=== PATIENT | female | born 1990 | race Caucasian/White ===

== ENCOUNTER 2021-10-03 19:34 | Emergency (ER) | payer OTHER, SELFPAY ==
--- NOTE | 2021-10-03 19:31 | ECG_ITS ---
APPROVED REPORT Exam: Resting ECG HR:95 bpm ECG Measurements Heart Rate 95 AXES UT 156 P 81 QRSd 86 QRS 85 QT 364 T 73 QTc 457 Conclusion Normal sinus rhythm with sinus arrhythmia Biatrial enlargement Abnormal ECG Electronically signed by : Shiva Lemus MD 10/05/2021 14:29:08
[2021-10-03 19:34] VITALS: BP 130/80; PULSE 92; RESP 18; TEMP 37; O2SAT 100; BMI 21.4
[2021-10-03 19:37] VITALS: BMI 25.0
--- NOTE | 2021-10-03 19:43 | XR_ITS ---
PROCEDURE INFORMATION: Exam: XR Chest Exam date and time: 10/03/2021 7:43 PM Age: 31 years old Clinical indication: Chest wall pain; Additional info: Burning chest pain, covid 09/19 TECHNIQUE: Imaging protocol: XR of the chest. Views: 2 views. COMPARISON: No relevant prior studies available. FINDINGS: Airway: Patent Lungs: Unremarkable. No consolidation. Pleural spaces: Unremarkable. No pleural effusion. No pneumothorax. Heart/Mediastinum: Unremarkable. No cardiomegaly. Bones/joints: No acute skeletal abnormality or aggressive osseous lesion. IMPRESSION: No acute findings.
[2021-10-03 19:52] LABS: Basophils # 0.1 K/mm3 (0-0.2); Basophils % 1.2 % (0.1-2.0); Eosinophils # 0.1 K/mm3 (0.0-0.4); Eosinophils % 1.2 % (0.1-12.0); Hematocrit 38.4 % (37.0-47.0); Hemoglobin 13.6 g/dL (12.2-16.2); Lymphocytes # 2.9 K/mm3 (0.7-4.5); Lymphocytes % 27.1 % (10-50); Mean Corpuscular HGB Conc 35.4 g/dL (31.8-35.4); Mean Corpuscular Hemoglobin 32.1 pg (27.0-31.2); Mean Corpuscular Volume 90.5 fl (81-99); Mean Platelet Volume 8.7 fl (7.4-10.4); Monocytes # 0.4 K/mm3 (0.1-1.0); Monocytes % 3.8 % (1.7-9.3); Neutrophils # 7.2 K/mm3 (1.8-7.8); Neutrophils % 66.7 % (37.0-80.0); Platelet Count 279 K/mm3 (142-424); Red Blood Count 4.24 M/mm3 (4.20-5.40); Red Cell Distribution Width 12.5 % (11.5-17.5); White Blood Count 10.8 K/mm3 (4.8-10.8)
[2021-10-03 19:58] LABS: Alanine Aminotransferase 14 U/L (12-78); Albumin Level 4.2 g/dl (3.5-5.0); Alkaline Phosphatase 81 U/L (38-126); Anion Gap 10.3 mEq/L (5-15); Aspartate Amino Transferase 22 U/L (14-36); Bilirubin,Direct 0.3 mg/dl (0.0-0.4); Bilirubin,Indirect 0.1 mg/dL (0.0-0.9); Bilirubin,Total 0.4 mg/dl (0.2-1.3); Bilirubin,Unconjugated 0.1 mg/dL (0.0-1.1); Blood Urea Nitrogen 15 mg/dl (7-17); Calcium 9.4 mg/dl (8.4-10.2); Carbon Dioxide 27 mmol/L (22.0-30.0); Chloride 102 mmol/L (98-107); Creatinine Clearance Estimated 109 mL/min (50-200); Estimated Glomerular Filt Rate 84 ml/min (>60); GFR (African American) 101 ML/MIN (>60); Glucose 94 mg/dl (74-100); Potassium 3.3 mmoL/L (3.5-5.1); Sodium 136 mmol/L (136-145); Total Protein,Serum 6.8 g/dl (6.3-8.2)
--- NOTE | 2021-10-03 20:00 | CT_ITS ---
PROCEDURE INFORMATION: Exam: CT Abdomen And Pelvis With Contrast Exam date and time: 10/03/2021 8:00 PM Age: 31 years old Clinical indication: Nausea and vomiting; Additional info: N/v/d, ag abd pain TECHNIQUE: Imaging protocol: Computed tomography of the abdomen and pelvis with contrast. Radiation optimization: All CT scans at this facility use at least one of these dose optimization techniques: automated exposure control; mA and/or kV adjustment per patient size (includes targeted exams where dose is matched to clinical indication); or iterative reconstruction. Contrast material: ISOVUE; Contrast volume: 75 ml; Contrast route: IV; COMPARISON: OBTV US OB transvaginal 04/06/2019 12:10 PM FINDINGS: Lungs: Visualized lung bases are clear. Liver: Normal. No mass. Gallbladder and bile ducts: The gallbladder is contracted. There is no evidence of biliary ductal dilation. Pancreas: Normal. No ductal dilation. Spleen: Normal. No splenomegaly. Adrenal glands: Normal. No mass. Kidneys and ureters: Normal. No hydronephrosis. Stomach and bowel: No bowel obstruction or significant bowel wall thickening. There is excessive colonic stool content. Appendix: A normal appendix is identified. Intraperitoneal space: No free fluid, fluid collections, or pneumoperitoneum. Retroperitoneal space: No acute abnormalities in the retroperitoneal space. Vasculature: Unremarkable. No abdominal aortic aneurysm. Lymph nodes: No retroperitoneal, pelvic, or mesenteric adenopathy. Urinary bladder: Unremarkable as visualized. Reproductive: Unremarkable as visualized. Bones/joints: No acute skeletal abnormality or aggressive osseous lesion. Soft tissues: No acute body wall soft tissue findings. IMPRESSION: No acute abdominopelvic pathology.
[2021-10-03 20:12] LABS: C-Reactive Protein < 0.3 mg/L (0-4); Troponin I < 0.01 ng/ml (0.00-0.034)
[2021-10-03 20:13] VITALS: BP 113/53; PULSE 75; RESP 18; O2SAT 98
[2021-10-03 20:18] LABS: Erythrocyte Sedimentation Rate 10 mm/hr (0-20); Procalcitonin < 0.030 ng/mL (0.0-2.0)
[2021-10-03 20:29] LABS: HCG Qualitative, Serum Negative (Negative)
[2021-10-03 20:30] VITALS: BP 109/65; PULSE 77; RESP 16; O2SAT 98
[2021-10-03 20:37] LABS: Microscopic, Urine URINE MICROSCOPIC (MICROSCOPIC)
[2021-10-03 20:41] LABS: Appearance,Urine CLEAR (Clear); Bilirubin,Urine Negative (Negative); Blood, Urine TRACE-L (Negative); Color,Urine YELLOW (Yellow); Glucose,Urine (UA) Negative (Negative); Ketones,Urine Negative (Negative); Leukocyte Esterase,Urine Negative (Negative); Nitrate,Urine Negative (Negative); Protein,Urine Negative (Negative); Specific Gravity, Urine 1.025 (1.005-1.030)
[2021-10-03 21:00] VITALS: BP 123/63; PULSE 82; RESP 14; O2SAT 98
[2021-10-03 21:06] LABS: Bacteria,Urine 1+ /lpf
--- NOTE | 2021-10-03 21:53 | HMH.EDNVD ---
ED Disposition Clinical Impression: Chest pain Qualifiers: Chest pain type: unspecified Qualified Code(s): R07.9 - Chest pain, unspecified Disposition: Home, Self-Care Condition on Discharge: Good Instructions: DI for Nausea -- Adult Additional Instructions: fluids and see pcp for follow up Referrals: Ewelina Garcia [Primary Care Provider] - - Critical Care Critical Care Time: No Attestation: On 10/03/21, the high probability of a clinically significant, sudden or life threatening deterioration of the following system(s) required my full and direct attention, intervention and personal management. The time I documented below is in addition to time spent performing reported procedures but includes the following listed in this critical care notation. Medical Decision Making - Medical Records Medical records reviewed: Yes: I reviewed the patient's medical records. - Mundo Inquiry Pt receiving controlled substance: No Vital Signs: 10/03/21 19:34 10/03/21 20:13 10/03/21 20:30 Temperature 98.6 F Temperature Source Oral Pulse Rate 75 77 Pulse Rate [Right] 92 H Respiratory Rate 18 18 16 Blood Pressure 113/53 L 109/65 L Blood Pressure [Right Arm] 130/80 Blood Pressure Mean 78 72 Blood Pressure Mean [Right Arm] 96 02 Sat by Pulse Oximetry 100 98 98 Oxygen Delivery Method Room Air Room Air Room Air 10/03/21 21:00 Temperature Temperature Source Pulse Rate 82 Pulse Rate [Right] Respiratory Rate 14 Blood Pressure 123/63 Blood Pressure [Right Arm] Blood Pressure Mean 82 Blood Pressure Mean [Right Arm] 02 Sat by Pulse Oximetry 98 Oxygen Delivery Method Room Air - Lab Data Lab results reviewed: Yes: I reviewed the patient's lab results. Lab Results 10/03/21 19:36: WBC 10.8, RBC 4.24, Hgb 13.6, Hct 38.4, MCV 90.5, MCH 32.1 H, MCHC 35.4, RDW 12.5, Plt Count 279, MPV 8.7, Neut % (Auto) 66.7, Lymph % (Auto) 27.1, [place] % (Auto) 3.8, Eos % (Auto) 1.2, Baso % (Auto) 1.2, Neut # (Auto) 7.2, Lymph # (Auto) 2.9, [place] # (Auto) 0.4, Eos # (Auto) 0.1, Baso # (Auto) 0.1 10/03/21 19:36: Sodium 136, Potassium 3.3 L, Chloride 102, Carbon Dioxide 27, Anion Gap 10.3, BUN 15, Creatinine 0.80, Estimated Creat Clear 109, Estimated GFR 84, Est GFR ( Amer) 101, Glucose 94, Calcium 9.4, Total Bilirubin 0.4, Direct Bilirubin 0.3, Conjugated Bilirubin 0.0, Indirect Bilirubin 0.1, Unconjugated Bilirubin 0.1, AST 22, ALT 14, Alkaline Phosphatase 81, Troponin I < 0.01, C-Reactive Protein < 0.3, Total Protein 6.8, Albumin 4.2 10/03/21 19:36: ESR 10 10/03/21 19:36: Procalcitonin < 0.030 10/03/21 19:36: Serum HCG, Qual Negative 10/03/21 20:16: Urine Color Yellow, Urine Appearance Clear, Urine pH 6.0, Ur Specific [place] 1.025, Urine Protein Negative, Urine Glucose (UA) Negative, Urine Ketones Negative, Urine Blood Trace-l, Urine Nitrate Negative, Urine Bilirubin Negative, Urine Urobilinogen 1.0, Ur Leukocyte Esterase Negative, Urine RBC 3-5, Urine WBC 5-10, Ur Squamous Epith Cells 3-5, Urine Bacteria 1+ Result diagrams: 10/03/21 19:36 10/03/21 19:36 Orders (Tests/Meds): ED MEDICATIONS Generic Name Dose Route Start Last Admin Trade Name Freq PRN Reason Stop Dose Admin Sodium Chloride 1,000 mls @ 999 mls/hr 10/03/21 19:45 10/03/21 20:00 Sod Chlor 0.9% 1000ml Bag IV 10/03/21 20:45 999 mls/hr .Q1H1M KARINA Administration Discontinued Medications Generic Name Dose Route Start Last Admin Trade Name Freq PRN Reason Stop Dose Admin Iopamidol 75 ml 10/03/21 20:50 10/03/21 20:50 Iopamidol-370 (76%);100ml Bottle IV 10/03/21 20:51 75 ml ONCE ONE Administration Ketorolac Tromethamine 30 mg 10/03/21 19:43 10/03/21 20:41 Ketorolac 30mg/Ml Vial IV 10/03/21 19:44 30 mg ONCE ONE Administration Metoclopramide HCl 10 mg 10/03/21 19:43 10/03/21 20:41 Metoclopramide Hcl 10mg/2ml Vial IVP 10/03/21 19:44 10 mg ONCE ONE Administration Ondansetron HCl 4 mg 10/03/21 19:43 10/03/21
[2021-10-03 23:25] VITALS: BP 100/55; PULSE 78; RESP 19; TEMP 37.1; O2SAT 98
== END 2021-10-03 23:45 | disposition home or self-care (01) ==
PROVIDERS: Emergency Provider Emergency Medicine; PCP Nurse Practitioner Family
DX: R07.9 Chest pain, unspecified (principal); R11.2 Nausea with vomiting, unspecified
CPT/HCPCS: 71046; 74177; 80048; 80076; 81001; 84145; 84484; 84703; 85025; 85651; 86140; 93005; 96365; 96375; 99283; J2405; Q9967

== ENCOUNTER 2022-04-29 10:42 | Emergency (ER) | payer OTHER, SELFPAY ==
[2022-04-29 11:08] VITALS: BP 120/73; PULSE 87; RESP 16; TEMP 36.9; O2SAT 100; BMI 21.4
--- NOTE | 2022-04-29 11:32 | PC.NURSE ---
Pt ambulating to bathroom at this time to provide urine sample.
[2022-04-29 11:38] LABS: Basophils # 0.1 K/mm3 (0-0.2); Eosinophils # 0.1 K/mm3 (0.0-0.4); Eosinophils % 1.6 % (0.1-12.0); Hematocrit 38.4 % (37.0-47.0); Hemoglobin 12.9 g/dL (12.2-16.2); Lymphocytes # 2.2 K/mm3 (0.7-4.5); Lymphocytes % 31.4 % (10-50); Mean Corpuscular HGB Conc 33.5 g/dL (31.8-35.4); Mean Corpuscular Volume 92.5 fl (81-99); Mean Platelet Volume 8.5 fl (7.4-10.4); Monocytes # 0.3 K/mm3 (0.1-1.0); Monocytes % 4.4 % (1.7-9.3); Neutrophils # 4.3 K/mm3 (1.8-7.8); Neutrophils % 61.5 % (37.0-80.0); Platelet Count 241 K/mm3 (142-424); Red Blood Count 4.15 M/mm3 (4.20-5.40); Red Cell Distribution Width 12.7 % (11.5-17.5); White Blood Count 6.9 K/mm3 (4.8-10.8)
--- NOTE | 2022-04-29 11:40 | PC.NURSE ---
Urine sample sent to lab. Pt hooked back up to monitor and IVF's. Provided pt with warm blanket.
[2022-04-29 11:43] LABS: Microscopic, Urine URINE MICROSCOPIC (MICROSCOPIC)
[2022-04-29 11:44] LABS: Chloride 107 mmol/L (98-107)
[2022-04-29 11:45] LABS: Sodium 137 mmol/L (136-145)
[2022-04-29 11:47] LABS: Alanine Aminotransferase 23 U/L (12-78); Amylase 64 U/L (30-110); Aspartate Amino Transferase 33 U/L (14-36); Blood Urea Nitrogen 10 mg/dl (7-17); Creatinine Clearance Estimated 120 mL/min (50-200); Estimated Glomerular Filt Rate 116 ml/min (>60); GFR (African American) 140 ML/MIN (>60)
[2022-04-29 11:48] LABS: Albumin Level 3.9 g/dl (3.5-5.0); Albumin/Globulin Ratio 1.5 (1.1-1.8); Alkaline Phosphatase 86 U/L (38-126); Calcium 9.1 mg/dl (8.4-10.2); Carbon Dioxide 26 mmol/L (22.0-30.0); Globulin 2.6 g/dL (1.3-3.2); Glucose 103 mg/dl (74-100); Lipase 47 U/L (23-300); Total Protein,Serum 6.5 g/dl (6.3-8.2)
[2022-04-29 11:51] LABS: Bilirubin,Total < 0.1 mg/dl (0.2-1.3)
[2022-04-29 11:58] LABS: HCG Qualitative, Serum Negative (Negative)
[2022-04-29 12:00] VITALS: BP 111/70; PULSE 71; RESP 18; O2SAT 100
[2022-04-29 12:01] LABS: Appearance,Urine CLEAR (Clear); Bilirubin,Urine Negative (Negative); Blood, Urine TRACE-I (Negative); Color,Urine YELLOW (Yellow); Glucose,Urine (UA) Negative (Negative); Ketones,Urine Negative (Negative); Leukocyte Esterase,Urine Negative (Negative); Nitrate,Urine Negative (Negative); PH,Urine 6.5 (5.0-8.5); Protein,Urine Negative (Negative); Specific Gravity, Urine <= 1.005 (1.005-1.030); Urobilinogen,Urine 0.2 EU/dl (0.2)
[2022-04-29 12:04] LABS: RBC,Urine Occasional #/hpf (0-3)
--- NOTE | 2022-04-29 12:10 | PC.NURSE ---
rounded on pt, pt resting in bed, pt states no needs at this time. Will continue to monitor
--- NOTE | 2022-04-29 12:25 | HMH.EDGENADL ---
ED Disposition Clinical Impression: Epigastric pain Disposition: Home, Self-Care Condition on Discharge: Good Instructions: DI for Acute Abdominal Pain Additional Instructions: Additional instructions for ABDOMINAL PAIN: See your physician as soon as possible for further evaluation. Return immediately if worsening abdominal pain, vomiting, shortness of breath, fever, vomiting of blood or abdominal distention. Continue taking omeprazole as prescribed. Zofran as needed for nausea. Follow-up with primary care provider for further evaluation and care. Prescriptions: Ondansetron [Zofran 4mg ODT] 4 mg PO TIDP PRN #10 tab PRN Reason: Nausea And Vomiting Transmission Status: Received by [facility] Referrals: Ewelina Garcia [Primary Care Provider] - Forms: Work/School Release - Critical Care Critical Care Time: No Attestation: On 04/29/22, the high probability of a clinically significant, sudden or life threatening deterioration of the following system(s) required my full and direct attention, intervention and personal management. The time I documented below is in addition to time spent performing reported procedures but includes the following listed in this critical care notation. Medical Decision Making - Medical Records Medical records reviewed: Yes: I reviewed the patient's medical records. MR Comment: Reviewed emergency department note and CT abdomen/pelvis report from 10/03/2021. Patient had COVID at that time and had right upper quadrant pain intermittently. CT scan unremarkable. - Mundo Inquiry Pt receiving controlled substance: No Vital Signs: 04/29/22 11:08 04/29/22 12:00 04/29/22 12:30 Temperature 98.4 F Temperature Source Oral Pulse Rate 71 91 H Pulse Rate [Right Radial] 87 Respiratory Rate 16 18 18 Blood Pressure 111/70 117/82 Blood Pressure [Right Arm] 120/73 Blood Pressure Mean 80 93 Blood Pressure Mean [Right Arm] 88 Blood Pressure Source [Right Arm] Automatic Cuff Blood Pressure Position [Right Arm] Sitting 02 Sat by Pulse Oximetry 100 100 99 Oxygen Delivery Method Room Air Room Air - Lab Data Lab Results 04/29/22 11:25: WBC 6.9, RBC 4.15 L, Hgb 12.9, Hct 38.4, MCV 92.5, MCH 31.0, MCHC 33.5, RDW 12.7, Plt Count 241, MPV 8.5, Neut % (Auto) 61.5, Lymph % (Auto) 31.4, [place] % (Auto) 4.4, Eos % (Auto) 1.6, Baso % (Auto) 1.0, Neut # (Auto) 4.3, Lymph # (Auto) 2.2, Bell # (Auto) 0.3, Eos # (Auto) 0.1, Baso # (Auto) 0.1 04/29/22 11:25: Sodium 137, Potassium 4.0, Chloride 107, Carbon Dioxide 26, Anion Gap 8.0, BUN 10, Creatinine 0.60, Estimated Creat Clear 120, Estimated GFR 116, Est GFR ( Amer) 140, Glucose 103 H, Calcium 9.1, Total Bilirubin < 0.1 L, AST 33, ALT 23, Alkaline Phosphatase 86, Total Protein 6.5, Albumin 3.9, Globulin 2.6, Albumin/Globulin Ratio 1.5, Amylase 64, Lipase 47 04/29/22 11:25: Serum HCG, Qual Negative 04/29/22 11:35: Urine Color Yellow, Urine Appearance Clear, Urine pH 6.5, Ur Specific [place] <= 1.005, Urine Protein Negative, Urine Glucose (UA) Negative, Urine Ketones Negative, Urine Blood Trace-i, Urine Nitrate Negative, Urine Bilirubin Negative, Urine Urobilinogen 0.2, Ur Leukocyte Esterase Negative, Urine RBC Occasional, Urine WBC None, Ur Squamous Epith Cells 3-5, Urine Bacteria None Result diagrams: 04/29/22 11:25 04/29/22 11:25 Orders (Tests/Meds): ED MEDICATIONS Generic Name Dose Route Start Last Admin Trade Name Freq PRN Reason Stop Dose Admin Sodium Chloride 10 ml 04/29/22 11:12 Sodium Chloride 0.9% 10ml Flush Syringe IV 05/29/22 11:11 NEEDED PRN Maintain IV Site Sodium Chloride 8 ml 04/29/22 12:32 04/29/22 12:36 Sodium Chloride 0.9% 10ml Vial IV 05/29/22 12:31 8 ml NEEDED PRN Administration dilute pepcid Discontinued Medications Generic Name Dose Route Start Last Admin Trade Name Freq PRN Reason Stop Dose Admin Belladonna Alkaloids 60 ml 04/29/22 12:33 04/29/22 12:36
[2022-04-29 12:30] VITALS: BP 117/82; PULSE 91; RESP 18; O2SAT 99
[2022-04-29 13:35] VITALS: BP 102/63; PULSE 74; RESP 16; TEMP 36.9; O2SAT 100
== END 2022-04-29 13:37 | disposition home or self-care (01) ==
PROVIDERS: Emergency Provider Emergency Medicine; PCP Nurse Practitioner Family
DX: R10.13 Epigastric pain (principal); R11.0 Nausea; R19.7 Diarrhea, unspecified
CPT/HCPCS: 80053; 81001; 82150; 83690; 84703; 85025; 96361; 96374; 96375; 99284; J2405

== ENCOUNTER → 2022-11-01 09:47 | Outpatient (CLI) | payer OTHER, SELFPAY ==
--- NOTE | 2022-11-01 09:56 | NM_ITS ---
FINAL REPORT CLINICAL HISTORY: UPPER ABD. PAIN 10:10am 8.56 mci tc choletec 1.2 mcg cck no pain with cck FINDINGS: Sequential anterior projection images of the abdomen were obtained after the intravenous injection of 8.56 mCi technetium 99m Choletec. There is normal uptake of radiotracer by the liver. The bile ducts are visualized by 10 minutes. Gallbladder activity is seen by 15 minutes. Bowel activity is noted by 10 minutes. After 1 hour, 1.2 ?g of CCK was injected intravenously for calculation of gallbladder ejection fraction. The gallbladder ejection fraction is 32%, which is within normal limits. IMPRESSION: No evidence of cystic duct or bile duct obstruction. Normal gallbladder ejection fraction of 32%. Reviewed, Interpreted and Dictated by Yvon Garvey III, MD Transcribed by Mbale Mcnally Authenticated and [facility]
== END ==
PROVIDERS: PCP Nurse Practitioner Family; Visit Provider Nurse Practitioner Family
DX: R10.10 Upper abdominal pain, unspecified (principal)
CPT/HCPCS: 78227; A9537; J2805

== ENCOUNTER 2022-11-21 09:44 | Emergency (ER) | payer OTHER, SELFPAY ==
[2022-11-21 09:49] VITALS: BP 135/77; PULSE 77; O2SAT 100
[2022-11-21 09:54] LABS: Microscopic, Urine URINE MICROSCOPIC (MICROSCOPIC)
[2022-11-21 09:55] VITALS: BP 135/77; PULSE 74; RESP 15; TEMP 36.6; O2SAT 98; BMI 22.3
--- NOTE | 2022-11-21 09:57 | HMH.EDGENADL ---
Discharge Plan Disposition Patient Disposition: Home, Self-Care Prescriptions Prescriptions: New famotidine [Pepcid] 20 mg tablet 20 mg PO BID 14 Days Qty: 28 0RF No Action ondansetron 4 mg tablet,disintegrating 4 mg PO Q8H PRN (Reason: nausea and vomiting) Qty: 16 0RF Trintellix 10 mg tablet 10 mg PO DAILY Qty: 30 1RF buspirone 15 MG tablet 15 mg PO DAILY Referrals Follow up/Referrals: Ewelina Garcia [Primary Care Provider] - See instructions Shilo Ordoñez [Referring] - 12/26/22 1:00 am (Pt need further evaluation for her intermittent abdominal pain. ) Activity Restrictions/Add. Instructions Additional Instructions/Restrictions: Your emergent work-up did not reveal any emergent medical condition. Is most likely peptic ulcer disease please continue take your omeprazole as previously instructed you may take Pepcid which has been prescribed to your pharmacy in [place]. You may also take [id number] antacids or Maalox. Referrals been made to Dr. Ordoñez from December 26 in [place] please return emergency part with any significant worsening. Clinical Impressions Clinical Impression: Generalized postprandial abdominal pain Instructions Patient Instructions: DI for Acute Abdominal Pain Discharge ED Provider: [facility] HPI General Chief complaint: Abdominal Pain Stated complaint: Abd pain nausea Time Seen by Provider: 11/21/22 09:57 History of Present Illness HPI narrative: Patient is a 32-year-old female presenting with abdominal pain. States this has been chronic and intermittent since last February. 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 She states that the pain is postprandial in nature 10 to 15 minutes each time after she eats. Most the time is epigastric but has been diffuse every once in a while. States that she had a right upper quadrant ultrasound and a HIDA scan in the past without any abnormalities. Has not had an endoscopy. Has been on Prilosec chronically takes it twice a day but does not take it on an empty stomach. She states she has had a GI cocktail once in the past with significant improvement. Denies any melena or hematochezia denies any hematemesis denies any fevers chills or other abnormalities. Related Data Home Medications Medication Instructions Recorded Confirmed buspirone 15 mg tablet 15 mg PO DAILY Anxiety 10/03/21 07/11/22 Previous Rx's Medication Instructions Recorded ondansetron 4 mg disintegrating 4 mg PO Q8H PRN nausea and 06/28/22 tablet vomiting #16 tabs vortioxetine 10 mg tablet 10 mg PO DAILY #30 tabs 06/28/22 (Trintellix) famotidine 20 mg tablet (Pepcid) 20 mg PO BID 2 weeks #28 tabs 11/21/22 Allergies Allergy/AdvReac Type Severity Reaction Status Date / Time No Known Allergies Allergy Verified 07/11/22 09:50 [facility] Disclaimer: The information contained in this section may have been updated after the patient was seen, as this information can be updated by other users. Social History (Updated 06/28/22 @ 11:21 by Treva Waddell APRN) Smoking Status: Never smoker second hand exposure: No alcohol intake: never substance use type: denies use current occupational status: employed Travel in the last 8 weeks: None adopted: No caregiver/support person: Yes (for her 4 kids) foster care: No household members: significant other housing: house lives independently: Yes marital status: life partner number of children: 4 number of grandchildren: 0 education level: high school service: No Hx Recent Travel: No sexually active: Yes caffeine: Yes physical activity: none max/catholic: None special max needs: No working smoke detector in home: Yes fire extinguisher in home: Yes carbon monox detector in home: No firear
[2022-11-21 10:04] LABS: Basophils # 0.1 K/mm3 (0-0.2); Eosinophils # 0.1 K/mm3 (0.0-0.4); Eosinophils % 1.6 % (0.1-12.0); Hematocrit 41.4 % (37.0-47.0); Hemoglobin 13.7 g/dL (12.2-16.2); Lymphocytes # 2.5 K/mm3 (0.7-4.5); Lymphocytes % 28.1 % (10-50); Mean Corpuscular Hemoglobin 30.1 pg (27.0-31.2); Mean Platelet Volume 8.5 fl (7.4-10.4); Monocytes # 0.4 K/mm3 (0.1-1.0); Monocytes % 4.6 % (1.7-9.3); Neutrophils # 5.7 K/mm3 (1.8-7.8); Neutrophils % 64.7 % (37.0-80.0); Platelet Count 257 K/mm3 (142-424); Red Blood Count 4.55 M/mm3 (4.20-5.40); Red Cell Distribution Width 12.7 % (11.5-17.5); White Blood Count 8.8 K/mm3 (4.8-10.8)
[2022-11-21 10:10] LABS: Alanine Aminotransferase 18 U/L (12-78); Albumin Level 4.3 g/dl (3.5-5.0); Albumin/Globulin Ratio 1.5 (1.1-1.8); Alkaline Phosphatase 74 U/L (38-126); Anion Gap 4.9 mEq/L (5-15); Aspartate Amino Transferase 23 U/L (14-36); Bilirubin,Total 0.6 mg/dl (0.2-1.3); Blood Urea Nitrogen 10 mg/dl (7-17); Carbon Dioxide 27 mmol/L (22.0-30.0); Chloride 108 mmol/L (98-107); Creatinine Clearance Estimated 125 mL/min (50-200); Estimated Glomerular Filt Rate 116 ml/min (>60); GFR (African American) 140 ML/MIN (>60); Globulin 2.8 g/dL (1.3-3.2); Glucose 93 mg/dl (74-100); Potassium 3.9 mmoL/L (3.5-5.1); Sodium 136 mmol/L (136-145); Total Protein,Serum 7.1 g/dl (6.3-8.2)
[2022-11-21 10:13] LABS: Urine Pregnancy, HCG Qual. Negative (Negative)
[2022-11-21 10:17] LABS: Appearance,Urine CLEAR (Clear); Bilirubin,Urine Negative (Negative); Blood, Urine Negative (Negative); Color,Urine YELLOW (Yellow); Glucose,Urine (UA) Negative (Negative); Ketones,Urine Negative (Negative); Leukocyte Esterase,Urine Negative (Negative); Nitrate,Urine Negative (Negative); PH,Urine 7.5 (5.0-8.5); Protein,Urine Negative (Negative); Urobilinogen,Urine 0.2 EU/dl (0.2)
[2022-11-21 10:22] LABS: Lipase 52 U/L (23-300)
[2022-11-21 10:25] LABS: WBC,Urine Occasional #/hpf (0-3)
--- NOTE | 2022-11-21 11:00 | PC.NURSE ---
checked on pt no complaints at this time
[2022-11-21 11:08] VITALS: BP 112/55; PULSE 86; O2SAT 100
[2022-11-21 11:36] VITALS: BP 112/55; PULSE 86; RESP 16; TEMP 36.5; O2SAT 100
== END 2022-11-21 11:59 | disposition home or self-care (01) ==
PROVIDERS: Emergency Provider Student in an Organized Health Care Education/Training Program; PCP Nurse Practitioner Family
DX: R10.84 Generalized abdominal pain (principal); G89.29 Other chronic pain
CPT/HCPCS: 80053; 81001; 81025; 83690; 85025; 99285

== ENCOUNTER → 2022-12-12 01:10 | Outpatient (CLI) | payer OTHER, SELFPAY | PROVIDERS: PCP Nurse Practitioner Family; Visit Provider Nurse Practitioner Family | DX: J02.9 Acute pharyngitis, unspecified (principal) | CPT/HCPCS: 87070; C9803; U0003; U0005 ==

== ENCOUNTER → 2023-01-22 13:37 | Outpatient (CLI) | payer OTHER, SELFPAY ==
--- NOTE | 2023-01-22 | CT_ITS ---
FINAL REPORT TECHNIQUE: Axial CT images of the thoracic spine were obtained with and without contrast. Sagittal and coronal reformatted images were also obtained. This study was performed with techniques to keep radiation doses as low as reasonably achievable (ALARA). Individualized dose reduction techniques using automated exposure control or adjustment of mA and/or kV according to the patient''s size were employed. CLINICAL HISTORY: . pain in thoracic spine and precordial pain, patient states mother had breast cancer and lung cancer COMPARISON: none FINDINGS: There is no evidence of fracture. There are mild and moderate degenerative changes in the thoracic spine with multilevel osteophytes. The vertebral alignment is normal. There is no evidence of significant canal stenosis. No paraspinous soft tissue abnormality is identified. No abnormal contrast enhancement. IMPRESSION: No fracture or acute bony abnormality. No significant central canal stenosis. No abnormal contrast enhancement. Reviewed, Interpreted and Dictated by Yvon Garvey III, MD Transcribed by Ifeoma Coombs Authenticated and [facility]
--- NOTE | 2023-01-22 13:50 | CT_ITS ---
FINAL REPORT TECHNIQUE: The patient was injected with IV contrast. Axial images were obtained of the chest by computed tomography. Precontrast images were also obtained. This study was performed with techniques to keep radiation doses as low as reasonably achievable (ALARA). Individualized dose reduction techniques using automated exposure control or adjustment of mA and/or kV according to the patient's size were employed. CLINICAL HISTORY: PAIN, thoracic spine pain and precordial pain, family hx (mother) breast and lung cancer COMPARISON: none FINDINGS: CT OF THE CHEST WITH AND WITHOUT CONTRAST: There is no axillary adenopathy. There is no mediastinal or hilar adenopathy. Heart size is normal. Note is made of a vessel arising from the ascending aorta consistent with thyroid DYLAN as a normal variant. There is no pericardial or pleural effusion identified. There is no suspicious pulmonary nodule or infiltrate identified. IMPRESSION: No acute findings. Reviewed, Interpreted and Dictated by Yvon Garvey III, MD Transcribed by Ifeoma Coombs Authenticated and [facility]
== END ==
PROVIDERS: PCP Family Medicine; Visit Provider Obstetrics & Gynecology
DX: R07.89 Other chest pain (principal); M54.6 Pain in thoracic spine
CPT/HCPCS: 71270; 72130; Q9967

== ENCOUNTER → 2023-09-08 20:05 | Outpatient (CLI) | payer OTHER, SELFPAY ==
[2023-09-10 21:51] LABS: Neisseria gonorrhoeae, NAA Negative (Negative)
== END ==
PROVIDERS: PCP Family Medicine; Visit Provider Nurse Practitioner Family
DX: N89.8 Other specified noninflammatory disorders of vagina (principal)
CPT/HCPCS: 87491; 87591

== ENCOUNTER 2023-11-26 18:27 | Outpatient (CLI) | payer OTHER, SELFPAY | END 2023-11-26 23:59 | LOC: LAB.DROPOF 18:27 | PROVIDERS: PCP Family Medicine; Visit Provider Family Medicine | DX: R05.9 Cough, unspecified (principal); R07.89 Other chest pain | CPT/HCPCS: 87635 ==

== ENCOUNTER 2024-09-17 11:53 | Outpatient (CLI) | payer OTHER, SELFPAY | END 2024-09-17 23:59 | disposition home or self-care (01) | LOC: LAB.DROPOF 09-20 11:54 | PROVIDERS: PCP Nurse Practitioner Family; Visit Provider Nurse Practitioner Family | DX: R39.9 Unspecified symptoms and signs involving the genitourinary system (principal) | CPT/HCPCS: 87086 ==

== ENCOUNTER 2024-09-23 13:53 | Outpatient (CLI) | payer OTHER, SELFPAY ==
--- NOTE | 2024-09-23 13:59 | US_ITS ---
PROCEDURE: US TRANSVAGINAL CLINICAL INDICATION: vaginal bleeding, abdominal pain COMPARISON: US OBTV US OB transvaginal from 04/06/[address] ABDOMEN PELVIS W CON from 10/03/2021 FINDINGS: Transvaginal sonographic images of the pelvis were obtained. UTERUS: 8.1cm x 5.3cmx 4.2cm anteverted with a combined endometrial thickness of 6.1mm. There is a small amount of fluid within the endometrium at the fundus. LEFT OVARY: 2.5 cmx1.5 cmx1.6cm with a volume of 3.2ml. There are multiple small peripheral follicles. RIGHT OVARY: 2.7 cmx 3.2cmx2.2cm with a volume of 9.8ml. There is a corpus luteum in the right ovary measuring 2.0 cm x 1.1 cm x 2.0 cm There are several small peripheral follicles. Both ovaries are seen and appear normal. Doppler flow to both ovaries are seen. There is no fluid in the cul-de-sac. IMPRESSION: 1. Anteverted uterus normal in shape and size. The endometrium measures 6.1 mm and within the endometrium at the fundus is a small collection of fluid. On image 36 at the fundus, the endometrium appears irregular and thickened. If bleeding persists would consider hysteroscopy and endometrial sampling. 2. Both ovaries are seen and appear normal. There are multiple small peripheral follicles within each ovary. There is a 2.0cm corpus luteum in the right ovary. 3. No fluid in the cul-de-sac. Dictated by: Alban Collado MD 09/23/2024 18:15 Alban Collado MD in [place] 09/23/2024 18:15
[2024-09-23 15:14] LABS: HCG,Quantitative 6 mIU/ml (0-5.42)
== END 2024-09-23 23:59 | disposition home or self-care (01) ==
PROVIDERS: PCP Family Medicine; Visit Provider Nurse Practitioner Family
DX: N93.9 Abnormal uterine and vaginal bleeding, unspecified (principal)
CPT/HCPCS: 36415; 76830; 84702

== ENCOUNTER 2024-10-07 13:40 | Emergency (ER) | payer OTHER, SELFPAY ==
[2024-10-07 13:41] VITALS: BP 153/75; PULSE 73; RESP 18; TEMP 36.6; O2SAT 99; BMI 21.4
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
--- NOTE | 2024-10-07 13:46 | CT_ITS ---
FINAL REPORT TECHNIQUE: After the administration of intravenous contrast, axial images were obtained through the abdomen and pelvis by computed tomography. The study was performed with techniques to keep radiation dose as low as reasonably achievable, (ALARA). Individual dose reduction techniques using automated exposure control or adjustment of mA and/or kV according to the patient's size were employed. CLINICAL HISTORY: Abdominal pain, hematuria, dysuria COMPARISON: 10/03/2021 FINDINGS: Abdomen: The lung bases are clear. The liver parenchyma is homogeneous. The gallbladder is present. The spleen, pancreas, adrenals and kidneys appear unremarkable. The aorta is normal in caliber. There is no free fluid or adenopathy. Pelvis: There is a moderate amount of stool throughout the colon. The appendix is not identified. The urinary bladder is unremarkable. The uterus is anteverted. There is no free fluid or adenopathy. IMPRESSION: No acute intra-abdominal process. Reviewed, Interpreted and Dictated by Darwin Dejesus MD Transcribed by Ifeoma Coombs Authenticated and [facility]
[2024-10-07] MEDS: KETOROLAC 30MG/ML VIAL 15 MG IV (13:59)
[2024-10-07] MEDS: ACETAMINOPHEN 500MG TAB 1000 MG PO (13:59)
[2024-10-07 14:01] VITALS: BP 96/72; PULSE 67; O2SAT 98
--- NOTE | 2024-10-07 14:04 | PC.NURSE ---
pt ambulatory to restroom without complications
[2024-10-07 14:07] LABS: Basophils % 0.6 % (0.1-2.0); Eosinophils # 0.1 K/mm3 (0.0-0.4); Eosinophils % 0.8 % (0.1-12.0); Hematocrit 38.9 % (37.0-47.0); Hemoglobin 13.5 g/dL (12.2-16.2); Lymphocytes # 2.3 K/mm3 (0.7-4.5); Lymphocytes % 31.8 % (10-50); Mean Corpuscular HGB Conc 34.7 g/dL (31.8-35.4); Mean Corpuscular Hemoglobin 30.4 pg (27.0-31.2); Mean Corpuscular Volume 87.6 fl (81-99); Mean Platelet Volume 10.5 fl (7.4-10.4); Monocytes # 0.4 K/mm3 (0.1-1.0); Monocytes % 5.1 % (1.7-9.3); Neutrophils # 4.4 K/mm3 (1.8-7.8); Neutrophils % 61.6 % (37.0-80.0); Platelet Count 233 K/mm3 (142-424); Red Blood Count 4.44 M/mm3 (4.20-5.40); Red Cell Distribution Width 11.3 % (11.5-17.5); White Blood Count 7.1 K/mm3 (4.8-10.8)
--- NOTE | 2024-10-07 14:17 | PC.NURSE ---
UA sent to lab
[2024-10-07 14:18] LABS: HCG Qualitative, Serum Negative (Negative)
[2024-10-07 14:19] LABS: Albumin Level 4.6 g/dl (3.5-5.0); Chloride 103 mmol/L (98-107)
[2024-10-07 14:19] LABS: Microscopic, Urine URINE MICROSCOPIC (MICROSCOPIC)
[2024-10-07 14:20] LABS: Potassium 3.8 mmoL/L (3.5-5.1); Sodium 139 mmol/L (136-145)
[2024-10-07 14:22] LABS: Alanine Aminotransferase 42 U/L (12-78); Albumin/Globulin Ratio 1.9 (1.1-1.8); Alkaline Phosphatase 74 U/L (38-126); Anion Gap 10.8 mEq/L (5-15); Aspartate Amino Transferase 37 U/L (14-36); Bilirubin,Total 0.5 mg/dl (0.2-1.3); Blood Urea Nitrogen 12 mg/dl (7-17); Carbon Dioxide 29 mmol/L (22.0-30.0); Creatinine Clearance Estimated 101 mL/min (50-200); Estimated Glomerular Filt Rate 96 ml/min (>60); GFR (African American) 116 ML/MIN (>60); Globulin 2.4 g/dL (1.3-3.2)
[2024-10-07 14:23] LABS: Calcium 9.6 mg/dl (8.4-10.2); Glucose 87 mg/dl (74-100); Lipase 56 U/L (23-300); Magnesium 1.7 mg/dl (1.6-2.3)
[2024-10-07 14:28] LABS: Appearance,Urine CLEAR (Clear); Bilirubin,Urine Negative (Negative); Blood, Urine TRACE-I (Negative); Color,Urine YELLOW (Yellow); Glucose,Urine (UA) Negative (Negative); Ketones,Urine Negative (Negative); Leukocyte Esterase,Urine Negative (Negative); Nitrate,Urine Negative (Negative); Protein,Urine Negative (Negative); Urobilinogen,Urine 0.2 EU/dl (0.2)
[2024-10-07] MEDS: SODIUM CHLORIDE 0.9% 10ML SYR (RAD ONLY) 10 ML IV (14:38)
[2024-10-07] MEDS: IOPAMIDOL-370 (76%);100ML BOTTLE 75 ML IV (14:38)
[2024-10-07 15:00] VITALS: BP 101/60; PULSE 70; O2SAT 99
[2024-10-07 15:10] LABS: Bacteria,Urine 3+ /lpf; Mucus,Urine 1+ /lpf; RBC,Urine 20-50 #/hpf (0-3); Squamous Epithelial Cell,Urine 20-50 #/hpf (0-5)
[2024-10-07 15:30] VITALS: BP 131/69; PULSE 73; O2SAT 100
--- NOTE | 2024-10-07 15:32 | PC.NURSE ---
Dr. Matthew NGUYEN
[2024-10-07 15:47] LABS: Microscopic, Urine URINE MICROSCOPIC (MICROSCOPIC)
[2024-10-07] MEDS: OXYBUTYNIN 5MG TAB 5 MG PO (15:49)
[2024-10-07] MEDS: NITROFURANTOIN 100MG CAPSULE 100 MG PO (15:49)
[2024-10-07 15:53] LABS: Appearance,Urine CLEAR (Clear); Bilirubin,Urine Negative (Negative); Blood, Urine TRACE-I (Negative); Color,Urine YELLOW (Yellow); Glucose,Urine (UA) Negative (Negative); Ketones,Urine Negative (Negative); Leukocyte Esterase,Urine Negative (Negative); Nitrate,Urine Negative (Negative); Protein,Urine Negative (Negative); Urobilinogen,Urine 0.2 EU/dl (0.2)
[2024-10-07 16:21] VITALS: BP 131/69; PULSE 72; RESP 18; TEMP 36.6; O2SAT 97
[2024-10-07 16:34] LABS: WBC,Urine Occasional #/hpf (0-3)
== END 2024-10-07 16:22 | disposition home or self-care (01) ==
PROVIDERS: Physician Assistant; Emergency Provider Student in an Organized Health Care Education/Training Program; PCP Family Medicine
DX: R30.0 Dysuria (principal); R31.9 Hematuria, unspecified; R30.9 Painful micturition, unspecified
CPT/HCPCS: 74177; 80053; 81001; 83690; 83735; 84703; 85025; 87086; 96374; 96375; 99285; J1885; Q9967

== ENCOUNTER 2024-10-22 17:23 | Outpatient (CLI) | payer OTHER, SELFPAY ==
[2024-10-22 16:47] LABS: HCG,Quantitative < 2 mIU/ml (0-5.42)
== END 2024-10-22 23:59 | disposition home or self-care (01) ==
LOC: LAB.DROPOF 17:24
PROVIDERS: PCP Nurse Practitioner Family; Visit Provider Nurse Practitioner Family
DX: R30.0 Dysuria (principal)
CPT/HCPCS: 84702